=== PATIENT | female | born 1975 | race Two or more races ===

== ENCOUNTER 2019-05-14 16:35 | Emergency (ER) | payer MEDICAID ==
[~2019-05-14] VITALS: Ht 154.9 cm; Wt 64.0 kg
--- NOTE | 2019-05-14 17:46 | NUR ---
requested records from [facility].
--- NOTE | 2019-05-14 18:11 | NUR ---
received records from [facility].
[2019-05-14 18:16] LABS: BASOPHILS # (AUTO) 0.03 x10^3/uL (0-0.1); BASOPHILS % (AUTO) 1 % (0-1); EOSINOPHILS # (AUTO) 0.24 x10^3/uL (0-0.4); EOSINOPHILS % (AUTO) 5 % (1-7); LYMPHOCYTES # (AUTO) 1.83 x10^3/uL (1-3.4); LYMPHOCYTES % (AUTO) 38 % (22-44); MD NO; MEAN CORPUSCULAR HEMOGLOBIN 32.1 pg (27.0-34.8); MEAN CORPUSCULAR HGB CONC 33.7 g/dL (32.4-35.8); MEAN CORPUSCULAR VOLUME 95.4 fL (80-100); MONOCYTES # (AUTO) 0.55 x10^3/uL (0.2-0.8); MONOCYTES % (AUTO) 11 % (2-9); NEUTROPHILS # (AUTO) 2.18 x10^3/uL (1.8-6.8); NEUTROPHILS % (AUTO) 45 % (42-75); PLATELET COUNT 355 x10^3/uL (130-400); RED BLOOD COUNT 4.82 x10^6/uL (3.82-5.3); RED CELL DISTRIBUTION WIDTH 12.9 % (9.6-15.2)
[2019-05-14 18:23] LABS: ALANINE AMINOTRANSFERASE 75 U/L (12-78); ALBUMIN 3.8 g/dL (3.4-5.0); ANION GAP 5 mmol/L (5-15); CALCIUM 8.8 mg/dL (8.5-10.1); CHLORIDE 108 mmol/L (98-107); CREATININE 0.83 mg/dL (0.55-1.02)
[2019-05-14 18:25] LABS: ALKALINE PHOSPHATASE 97 U/L (45-117); BILIRUBIN,TOTAL 0.3 mg/dL (0.2-1.0); TOTAL PROTEIN 7.3 g/dL (6.4-8.2)
[2019-05-14 18:45] VITALS: BP 122/80
== END 2019-05-14 19:44 | disposition home or self-care (01) ==
LOC: ED 18:30
DX: B34.9 Viral infection, unspecified (principal); K08.89 Other specified disorders of teeth and supporting structures; R42 Dizziness and giddiness; Z87.891 Personal history of nicotine dependence; Z85.3 Personal history of malignant neoplasm of breast; Z90.710 Acquired absence of both cervix and uterus; Z86.73 Personal history of transient ischemic attack (TIA), and cerebral infarction without residual deficits
CPT/HCPCS: 36415; 71046; 80053; 85025; 99284